=== PATIENT | male | born 1990 | race Caucasian/White ===

== ENCOUNTER 2022-07-11 17:49 | Emergency (ER) | payer OTHER, SELFPAY ==
[2022-07-11] VITALS (7 sets, daily range): BP systolic 131–140; BP diastolic 68–76; PULSE 64–87; RESP 15; TEMP 37.4; O2SAT 95–97
--- NOTE | 2022-07-11 18:00 | DI.RAD_ITS ---
Exam(s) XR ANKLE LT COMPLETE EXAM: XR ANKLE LT COMPLETE CLINICAL HISTORY: twist injury TECHNIQUE: 2D digital imaging was performed of the left ankle. Three images were obtained. AP, lat eral and oblique views were obtained. COMPARISON: No exams were available for comparison FINDINGS: BONES: No acute fracture is present. No bony destructive lesion is seen. Old well corticated osseous densities are seen at the tip of the medial malleolus. There is a small enthesophyte at the posterio r calcaneus. JOINTS:The ankle mortise is normally aligned. SOFT TISSUE: There is soft tissue swelling about the ankle laterally. IMPRESSION: No acute fracture or dislocation. DATA REPOSITORY: RADIATION DOSE DELIVERED:
--- NOTE | 2022-07-11 18:13 | ED.GENADUL_ITS ---
Discharge Plan Disposition Patient Disposition: Home Condition: Stable Discharge Details Chief Complaint: Trauma Clinical Impression: Ankle sprain ED Provider: Nick Forte Home Meds and New Rx's Prescriptions: No Action No Known Home Meds Discharge Instructions Instructions: Ankle Sprain (ED) Additional Instructions: Wear brace and use crutches as needed, advance activity as tolerated. Rest, elevate, cool compresses every 2 hours for 20 minutes. [id number] Tylenol and/or Motrin as directed for discomfort. Please watch for new or worsening symptoms and return to the ER for any concerns. Lastly, please follow-up with your PCP in the next week if symptoms are not improving with conservative measures. Medical Decision Making 32-year-old gentleman rolled his ankle earlier today while playing basketball. No distracting injuries. Plan to obtain x-ray to rule out bony involvement X-ray does not reveal any acute osseous abnormalities Discussed x-ray with patient and family. Will apply brace and crutches Standard discharge and return precautions were provided. Patient understands, is agreeable to this plan, and has no additional questions or concerns upon discharge. This documentation was generated using [employer] system, please disregard any oddities of phrase or misspellings. Imaging Data Radiologic Study: Attestation: I personally reviewed and interpreted this imaging study as follows: Radiologist's impression: PROCEDURE INFORMATION: Exam: XR Left Ankle Exam date and time: 07/11/2022 6:41 PM Age: 32 years old Clinical indication: Injury or trauma; Other: Twist injury; Injury date: 07/11/2022 TECHNIQUE: Imaging protocol: Radiologic exam of the Left ankle. Views: 3 or more views. COMPARISON: No relevant prior studies available. FINDINGS: Bones/joints: Probable old healed fracture of the distal left fibula. 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 Noninflamed enthesophyte seen within the region of the Achilles tendon. Bone mineralization is age-appropriate. There is no evidence of fracture. No evidence of dislocation. The joint spaces are adequately preserved; no significant degenerative narrowing and no bony erosion seen. Soft tissues: No radiopaque foreign body present. There is soft tissue swelling left ankle predominantly at the lateral malleolus. IMPRESSION: 1. No acute osseous abnormality. 2. 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 3. There is soft tissue swelling left ankle predominantly at the lateral malleolus. Thank you for allowing us to participate in the care of your patient. HPI General Mode of arrival: wheelchair . Date/Time Provider Initiated Documentation: 07/11/22 18:07 . Limitations to Documentation: no limitations . Information obtained by: patient and family . History of Present Illness 32 year old M presents to the emergency department with the chief complaint of L ankle sprain, described as moderate, with intensity rated at 7. Quality is described as aching, and is localized to the left and lower extremity. Patient reports no radiation. Patient started experiencing this hour(s) (5) and it has been constant. Immobilization improves symptom(s), Movement worsens symptoms . Patient notes no other symptoms.. Patient did receive the following treatments prior to arrival, cold therapy Related Data Home Medications Medication Instructions Recorded Confirmed Unknown [No Known Home Meds] 07/11/22 07/11/22 Allergies Allergy/AdvReac Type Severity Reaction Status Date / Time No Known Allergies Allergy Unverified 07/11/22 18:01 General Stated Complaint: Trauma IVONE: 3 Review of Systems Constitutional Constitutional: Denies weakness Musculoskeletal Musculoskeletal: Reports arthralgias, Reports joint swelling, Denies numbness, Reports stiffness and Denies tingling Integumentary/Breasts Skin/Breast: Denies rash Neurologic Neurologic: Denies numbness, Denies tingling and Denies weakness PFSH All Active Problems (Updated 07/11/22 @ 19:03 by EDDA Gama) Ankle sprain (Acute) Social History Smoking/Tobacco Use Status: Never Smoking risk assessment performed?: Yes Drug use: Rarely Substance use type: marijuana Do you feel safe at home: Yes Do you feel safe in your relationship?: Yes Exam Const General: cooperative, healthy appearing, comfortable and no acute distress Orientation: alert and awake HENGA Head: normal to inspection, normocephalic and atraumatic Eyes Conjunctivae: conjunctivae normal Neck Neck: normal visual inspection, full ROM, no meningeal signs, trachea midline and supple Resp Effort & Inspection: normal respiratory effort and able to speak in complete sentences Cardio Rate: regular rate Rhythm: regular rhythm Skin General skin exam: no rashes or lesions noted Neuro General: patient alert, patient awake, moves all extremities and no focal motor deficits Cognition: normal cognition Speech: speech normal Motor: muscle tone normal throughout Sensory Exam: no sensory deficits noted Extrem General: full ROM and capillary refill normal Other: Left ankle skin intact. Neuro, vascular, tendon intact. Normal capillary refill and dorsalis pedal pulse. Diffuse discomfort across the lateral malleolus, no deformity or bony point tenderness. Psych Appearance: grossly normal Mental Status: mental status grossly normal Course Vital Signs Vital signs: Vital Signs Temperature 37.4 C 07/11/22 17:57 Pulse 87 07/11/22 17:57 Respiratory Rate 15 07/11/22 17:57 Blood Pressure 140/76 07/11/22 17:57 Pulse Oximetry 97 07/11/22 17:57 Temperature 37.4 C 07/11/22 17:57 Temperature Source Oral 07/11/22 17:57 Pulse 87 07/11/22 17:57 Respiratory Rate 15 07/11/22 17:57 Respiratory Effort 07/11/22 18:01 Respiratory Depth Normal 07/11/22 18:01 Respiratory Pattern Normal 07/11/22 18:01 Blood Pressure 140/76 07/11/22 17:57 Blood Pressure Position Sitting 07/11/22 17:57 Pulse Oximetry 97 07/11/22 17:57 Oxygen Delivery Method Room Air 07/11/22 17:57 Oxygen Flow Rate 0 07/11/22 17:57 Pain Level 6 07/11/22 17:57 PAWSS Have you Been Recently Intoxicated or Drunk Within the Last 30 days?: No Have you Ever Experienced Previous Episodes of Alcohol Withdrawal?: No Have you ever Experienced Withdrawal Seizures?: No Have you ever Experienced Delirium Tremens(DT)s?: No Have you ever undergone Alcohol Rehabilitation Treatment (i.e, inpt ot outpatient treatment programs)?: No Have you ever Experienced Blackouts?: Yes Have you ever Combined Alcohol with other Downers within the last 90 days?: No Have you ever Combined Alcohol with any other Substance of Abuse during the last 90 days?: No Positive Blood Alcohol level on Presentation? [PCS.BAL]: No Evidence of Increased Autonomic Activity (i.e. HR>120, tremor, sweating, agitation, nausea)?: No Result: 1
--- NOTE | 2022-07-11 18:50 | DI.VRAD_ITS ---
PROCEDURE INFORMATION: Exam: XR Left Ankle Exam date and time: 07/11/2022 6:41 PM Age: 32 years old Clinical indication: Injury or trauma; Other: Twist injury; Injury date: 07/11/2022 TECHNIQUE: Imaging protocol: Radiologic exam of the Left ankle. Views: 3 or more views. COMPARISON: No relevant prior studies available. FINDINGS: Bones/joints: Probable old healed fracture of the distal left fibula. 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 Noninflamed enthesophyte seen within the region of the Achilles tendon. Bone mineralization is age-appropriate. There is no evidence of fracture. No evidence of dislocation. The joint spaces are adequately preserved; no significant degenerative narrowing and no bony erosion seen. Soft tissues: No radiopaque foreign body present. There is soft tissue swelling left ankle predominantly at the lateral malleolus. IMPRESSION: 1. No acute osseous abnormality. 2. 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 3. There is soft tissue swelling left ankle predominantly at the lateral malleolus. Dictated and Authenticated by: Corky Valle MD. Ordering:ALBERTO Romero MD
== END 2022-07-11 19:22 | disposition home or self-care (01) ==
PROVIDERS: Emergency Provider Physician Assistant
DX: S93.402A Sprain of unspecified ligament of left ankle, initial encounter (principal); X50.1XXA Overexertion from prolonged static or awkward postures, initial encounter; Y93.67 Activity, basketball
CPT/HCPCS: 99283; 73610; 99282